=== PATIENT | female | born 2000 | race Caucasian/White ===

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

== ENCOUNTER 2023-01-11 12:07 | Emergency (ER) | payer OTHER ==
[2023-01-11 12:25] VITALS: RESP 18; BMI 20.2
[2023-01-11] MEDS ORDERED: SODIUM CHLORIDE 1,000 ML IV STA (12:44)
[2023-01-11] MEDS ORDERED: ACETAMINOPHEN 1000 MG/100 ML BAG IVPB ONE (12:44)
[2023-01-11] MEDS ORDERED: METOCLOPRAMIDE HCL INJECTION 10 MG/2 ML VIAL IVPUSH ONE (12:44)
[2023-01-11] MEDS ORDERED: METOCLOPRAMIDE HCL INJECTION 10 MG/2 ML VIAL ONE (13:02)
[2023-01-11] MEDS ORDERED: ACETAMINOPHEN INJECTION 100 ML IVPB ONE (13:02)
[2023-01-11 13:26] LABS: BASO % 0.2 % (0-2.0); EOS % 0.4 % (0-4.5); HEMATOCRIT 36.2 % (32.4-45.2); HEMOGLOBIN 11.9 GM/dL (10.7-15.3); LYMPH % 15.2 % (8-40); MCH 30.9 pg (25.7-33.7); MCHC 32.8 g/dl (32.0-36.0); MEAN CELL VOLUME 94.1 fl (80-96); MEAN PLT VOLUME 8.7 fl (7.5-11.1); NEUT % 80.2 % (42.8-82.8); PLATELET COUNT 334 10^3/uL (134-434); RBC 3.85 M/mm3 (3.60-5.2); RDW 12.8 % (11.6-15.6); WHITE BLOOD COUNT 8.2 K/mm3 (4.0-10.0)
[2023-01-11 13:46] LABS: POTASSIUM 4.8 mmol/L (3.5-5.1)
[2023-01-11 13:48] LABS: CALCIUM 9.1 mg/dL (8.5-10.1)
[2023-01-11 13:49] LABS: BLOOD UREA NITROGEN 11.7 mg/dL (7-18)
[2023-01-11 13:51] LABS: CREATININE 0.6 mg/dL (0.55-1.3)
[2023-01-11 13:53] LABS: BILIRUBIN,TOTAL 0.3 mg/dL (0.2-1)
[2023-01-11 14:26] LABS: HCG,QUALITATIVE URINE Negative
[2023-01-11 14:27] LABS: EPI CELLS 2 /uL (0-25.1); HYALINE CASTS 0 /uL (0-3.1); PH,URINE 5.5 (5.0-8.0); URINE APPEARANCE CLEAR; URINE BACTERIA 48 /uL (0-1359); URINE BILIRUBIN NEGATIVE (NEGATIVE); URINE COLOR YELLOW; URINE GLUCOSE (UA) NEGATIVE (NEGATIVE); URINE KETONE NEGATIVE (NEGATIVE); URINE LEUK ESTERASE NEGATIVE (NEGATIVE); URINE NITRITE NEGATIVE (NEGATIVE); URINE PROTEIN NEGATIVE (NEGATIVE); URINE RBC 95 /uL (0-23.9); URINE UROBILINOGEN 0.2 mg/dL (0.2-1.0); URINE WBC 8 /uL (0-25.8)
[2023-01-11 16:55] VITALS: BP 118/74; PULSE 80; TEMP 98
== END 2023-01-11 16:56 | disposition home or self-care (01) ==
LOC: JER 12:07
PROC: 3E033NZ Introduction of Analgesics, Hypnotics, Sedatives into Peripheral Vein, Percutaneous Approach (ICD-10-PCS; principal; 2023-01-11)
PROC: 3E033GC Introduction of Other Therapeutic Substance into Peripheral Vein, Percutaneous Approach (ICD-10-PCS; 2023-01-11)
PROC: 3E0337Z Introduction of Electrolytic and Water Balance Substance into Peripheral Vein, Percutaneous Approach (ICD-10-PCS; 2023-01-11)
DX: R10.30 Lower abdominal pain, unspecified (principal); R11.2 Nausea with vomiting, unspecified
CPT/HCPCS: 36415; 76830-TC; 80053; 81003; 84703; 85025; 87086; 99284-25

== ENCOUNTER 2023-07-10 10:27 | Emergency (ER) | payer OTHER ==
[2023-07-10 10:38] VITALS: BP 110/71; PULSE 76; RESP 18; TEMP 98; BMI 20.6
[2023-07-10] MEDS ORDERED: ONDANSETRON 4 MG TABLET PO ONE (11:09)
[2023-07-10] MEDS: ONDANSETRON *ODT* 4 MG TABLET SL ONE (11:20)
[2023-07-10] MEDS ORDERED: ACETAMINOPHEN 325 MG TABLET (FP) ONE (11:24)
[2023-07-10 11:53] LABS: BASO % 0.5 % (0-2.0); EOS % 0.7 % (0-4.5); HEMATOCRIT 35.2 % (32.4-45.2); LYMPH % 18.1 % (8-40); MCH 31.6 pg (25.7-33.7); MCHC 34.1 g/dl (32.0-36.0); MEAN CELL VOLUME 92.9 fl (80-96); MEAN PLT VOLUME 8.6 fl (7.5-11.1); MONO % 3.8 % (3.8-10.2); NEUT % 76.9 % (42.8-82.8); PLATELET COUNT 362 10^3/uL (134-434); RBC 3.79 M/mm3 (3.60-5.2); RDW 12.9 % (11.6-15.6)
[2023-07-10 12:09] LABS: POTASSIUM 4.1 mmol/L (3.5-5.1)
[2023-07-10 12:10] LABS: ALBUMIN 4.5 g/dl (3.4-5.0)
[2023-07-10] MEDS: ACETAMINOPHEN 500 MG TABLET (FP) PO ONE (12:10)
[2023-07-10] MEDS: SODIUM CHLORIDE 0.9% 500 ML INFUS.BAG IV ONE (12:10)
[2023-07-10 12:11] LABS: BLOOD UREA NITROGEN 7.2 mg/dL (7-18); CALCIUM 9.2 mg/dL (8.5-10.1)
[2023-07-10 12:14] LABS: CREATININE 0.7 mg/dL (0.55-1.3)
[2023-07-10 12:16] LABS: BILIRUBIN,TOTAL 0.7 mg/dL (0.2-1); TOT PROT 8.2 g/dl (6.4-8.2)
[2023-07-10] MEDS: ONDANSETRON 4 MG/2 ML VIAL IVPUSH ONE (13:00)
[2023-07-10] MEDS ORDERED: KETOROLAC TROMETHAMINE 30 MG/1 ML VIAL ONE (13:17)
[2023-07-10 13:18] LABS: HCG,QUALITATIVE URINE Negative
[2023-07-10 13:19] LABS: PH,URINE 6.5 (5.0-8.0); URINE APPEARANCE CLEAR; URINE BILIRUBIN NEGATIVE (NEGATIVE); URINE COLOR YELLOW; URINE GLUCOSE (UA) NEGATIVE (NEGATIVE); URINE KETONE NEGATIVE (NEGATIVE); URINE LEUK ESTERASE TRACE (NEGATIVE); URINE NITRITE NEGATIVE (NEGATIVE); URINE PROTEIN NEGATIVE (NEGATIVE); URINE UROBILINOGEN 0.2 mg/dL (0.2-1.0)
[2023-07-10] MEDS: KETOROLAC TROMETHAMINE 30 MG/1 ML VIAL IVPUSH ONE (13:25)
[2023-07-10 14:01] LABS: EPI CELLS 5 /uL (0-25.1); HYALINE CASTS 0 /uL (0-3.1); URINE BACTERIA 49 /uL (0-1359); URINE RBC 85 /uL (0-23.9); URINE WBC 8 /uL (0-25.8)
== END 2023-07-10 15:12 | disposition home or self-care (01) ==
LOC: JER 10:27
PROC: 3E0333Z Introduction of Anti-inflammatory into Peripheral Vein, Percutaneous Approach (ICD-10-PCS; principal; 2023-07-10)
DX: R11.2 Nausea with vomiting, unspecified (principal); R10.30 Lower abdominal pain, unspecified; N94.6 Dysmenorrhea, unspecified
CPT/HCPCS: 36415; 76830-TC; 80053; 81003; 83690; 84703; 85025; 87086; 99284-25; Q0162

== ENCOUNTER 2024-04-23 11:53 | Emergency (ER) | payer OTHER ==
[2024-04-23 12:03] VITALS: BP 121/63; PULSE 99; RESP 18; TEMP 98.6; BMI 21.4
[2024-04-23 13:05] LABS: BASO % 0.7 % (0-2.0); EOS % 0.6 % (0-4.5); HEMOGLOBIN 11.8 GM/dL (10.7-15.3); LYMPH % 31.1 % (8-40); MCH 30.8 pg (25.7-33.7); MCHC 33.7 g/dl (32.0-36.0); MEAN CELL VOLUME 91.5 fl (80-96); MEAN PLT VOLUME 8.5 fl (7.5-11.1); MONO % 6.1 % (3.8-10.2); NEUT % 61.5 % (42.8-82.8); PLATELET COUNT 349 10^3/uL (134-434); RBC 3.83 M/mm3 (3.60-5.2); RDW 14.6 % (11.6-15.6); WHITE BLOOD COUNT 6.8 K/mm3 (4.0-10.0)
[2024-04-23 13:06] LABS: PH,URINE 6.5 (5.0-8.0); URINE APPEARANCE CLEAR; URINE BILIRUBIN NEGATIVE (NEGATIVE); URINE COLOR YELLOW; URINE GLUCOSE (UA) NEGATIVE (NEGATIVE); URINE KETONE NEGATIVE (NEGATIVE); URINE LEUK ESTERASE NEGATIVE (NEGATIVE); URINE NITRITE NEGATIVE (NEGATIVE); URINE PROTEIN NEGATIVE (NEGATIVE); URINE UROBILINOGEN 0.2 mg/dL (0.2-1.0)
[2024-04-23] MEDS ORDERED: ACETAMINOPHEN INJECTION 100 ML ONE (13:07)
[2024-04-23] MEDS: ACETAMINOPHEN 1000 MG/100 ML BAG IVPB ONE (13:10)
[2024-04-23] MEDS: SODIUM CHLORIDE 0.9% 500 ML INFUS.BAG IV ONE (13:10)
[2024-04-23 13:35] LABS: POTASSIUM 4.6 mmol/L (3.5-5.1)
[2024-04-23 13:37] LABS: ALBUMIN 3.7 g/dl (3.4-5.0); BLOOD UREA NITROGEN 8.6 mg/dL (7-18); CALCIUM 9.1 mg/dL (8.5-10.1)
[2024-04-23 13:41] LABS: BILIRUBIN,TOTAL 0.4 mg/dL (0.2-1); CREATININE 0.5 mg/dL (0.55-1.3)
[2024-04-23 13:43] LABS: TOT PROT 7.6 g/dl (6.4-8.2)
== END 2024-04-23 17:57 | disposition home or self-care (01) ==
LOC: JER 11:53
PROC: 3E033NZ Introduction of Analgesics, Hypnotics, Sedatives into Peripheral Vein, Percutaneous Approach (ICD-10-PCS; principal; 2024-04-23)
DX: O36.4XX0 Maternal care for intrauterine death, not applicable or unspecified (principal)
CPT/HCPCS: 36415; 76817-TC; 80053; 81003; 84702; 85025; 86850; 86900; 86901; 87086; 99284-25; J0131